=== PATIENT | male | born 1985 | race Caucasian/White ===

== ENCOUNTER 2017-12-13 10:39 | Emergency (ER) | payer SELFPAY ==
--- NOTE | 2017-12-13 11:26 | EDPHYS ---
Physician Documentation [facility] Name: Denis James III Age: 32 yrs Sex: Male : 1985 Arrival Date: 12/13/2017 Time: 10:43 Bed 11 Private MD: None, None ED Physician Cash Edwards HPI: 12/13 11:07 This 32 yrs old Male presents to ER via Ambulatory with complaints of Ear dimas Pain. 11:07 The patient presents with pain. The complaints affect the left ear. Onset: The dimas symptoms/episode began/occurred 3 day(s) ago. Modifying factors: The symptoms are alleviated by nothing, the symptoms are aggravated by nothing. Associated signs and symptoms: The patient has no apparent associated signs or symptoms. Severity of symptoms: At their worst the symptoms were mild in the emergency department the symptoms are unchanged. Historical: - Allergies: 10:47 No Known Allergies; aj1 - Home Meds: 10:47 None [Active]; aj1 - PMHx: 10:47 None; aj1 - PSHx: 10:47 None; aj1 - Immunization history:: Flu vaccine is not up to date. - Social history:: Smoking status: Patient uses tobacco products, smokes one pack cigarettes per day. - Ebola Screening: : Patient denies travel to an Ebola-affected area in the 21 days before illness onset. ROS: 11:20 Constitutional: Negative for fever, chills, and weight loss, Eyes: Negative for injury, dimas pain, redness, and discharge, Neck: Negative for injury, pain, and swelling, Cardiovascular: Negative for chest pain, palpitations, and edema, Respiratory: Negative for shortness of breath, cough, wheezing, and pleuritic chest pain, Abdomen/GI: Negative for abdominal pain, nausea, vomiting, diarrhea, and constipation, Back: Negative for injury and pain, : Negative for injury, bleeding, discharge, and swelling, MS/Extremity: Negative for injury and deformity, Skin: Negative for injury, rash, and discoloration, Neuro: Negative for headache, weakness, numbness, tingling, and seizure, Psych: Negative for depression, anxiety, suicide ideation, homicidal ideation, and hallucinations, Allergy/Immunology: Negative for hives, rash, and allergies, Endocrine: Negative for neck swelling, polydipsia, polyuria, polyphagia, and marked weight changes, Hematologic/Lymphatic: Negative for swollen nodes, abnormal bleeding, and unusual bruising. 11:20 ENT: Positive for ear pain. Exam: 11:20 Constitutional: This is a well developed, well nourished patient who is awake, alert, dimas and in no acute distress. Head/Face: Normocephalic, atraumatic. Eyes: Pupils equal round and reactive to light, extra-ocular motions intact. Lids and lashes normal. Conjunctiva and sclera are non-icteric and not injected. Cornea within normal limits. Periorbital areas with no swelling, redness, or edema. Neck: Trachea midline, no thyromegaly or masses palpated, and no cervical lymphadenopathy. Supple, full range of motion without nuchal rigidity, or vertebral point tenderness. No Meningismus. Chest/axilla: Normal chest wall appearance and motion. Nontender with no deformity. No lesions are appreciated. Cardiovascular: Regular rate and rhythm with a normal S1 and S2. No gallops, murmurs, or rubs. Normal PMI, no JVD. No pulse deficits. Respiratory: Lungs have equal breath sounds bilaterally, clear to auscultation and percussion. No rales, rhonchi or wheezes noted. No increased work of breathing, no retractions or nasal flaring. Abdomen/GI: Soft, non-tender, with normal bowel sounds. No distension or tympany. No guarding or rebound. No evidence of tenderness throughout. Back: No spinal tenderness. No costovertebral tenderness. Full range of motion. Male : Normal genitalia with no discharge or lesions. Skin: Warm, dry with normal turgor. Normal color with no rashes, no lesions, and no evidence of cellulitis. MS/ Extremity: Pulses equal, no cyanosis. Neurovascular intact. Full, normal range of motion. Neuro: Awake and alert, GCS 15, oriented to person, place, time, and situation. Cranial nerves II-XII grossly intact. Motor strength 5/5 in all extremities. Sensory grossly intact. Cerebellar exam normal. Normal gait. Psych: Awake, alert, with orientation to person, place and time. Behavior, mood, and affect are within normal limits. 11:20 ENT: External ear(s): no acute changes, Ear canal(s): are normal, no acute changes, TM's: are normal, no acute changes, Nose: is normal, Examination of the other nostril shows no obvious abnormality, Mouth: is normal, Posterior pharynx: is normal. Vital Signs: 10:47 BP 121 / 81; Pulse 73; Resp 18; Temp 98.1; Pulse Ox 99% on R/A; Weight 77.11 kg (R); aj1 Height 6 ft. 0 in. (182.88 cm) (R); Pain 8/10; 10:47 Body Mass Index 23.06 (77.11 kg, 182.88 cm) aj1 MDM: 10:52 Patient medically screened. [facility] 11:23 Data reviewed: vital signs, nurses notes. [facility] Administered Medications: No medications were administered Disposition: 12/13/17 11:25 Discharged to Home. Impression: Other seasonal allergic rhinitis. - Condition is Stable. - Discharge Instructions: Allergies, Adult, Nasal Allergies, Steps to Quit Smoking, Smoking Hazards, Steps to Quit Smoking, [id number]. - Prescriptions for Abbie- D 12 Hour 60-120 mg Oral Tablet Sustained Release 12 hr - take 1 tablet by ORAL route every 12 hours As needed; 20 tablet. Medrol (Samuel) 4 mg Oral Tablets, Dose Pack - take 1 tablet by ORAL route as directed - follow package instructions; 1 packet. - Medication Reconciliation Form, Thank You Letter, Antibiotic Education, Prescription Opioid Use form. - Follow up: Private Physician; When: 2 - 3 days; Reason: Recheck today's complaints, Continuance of care, Re-evaluation by your physician. Follow up: Salvador Ayers MD; When: 2 - 3 days; Reason: Recheck today's complaints, Re-evaluation by your physician. - Problem is new. - Symptoms have improved. Signatures: Guillermina Sanon RN RN aj1 Cash Edwards MD MD cha Williams, Irene RN RN iw Corrections: (The following items were deleted from the chart) 11:34 11:25 12/13/2017 11:25 Discharged to Home. Impression: Other seasonal allergic iw rhinitis. Condition is Stable. Forms are Medication Reconciliation Form, Thank You Letter, Antibiotic Education, Prescription Opioid Use. Follow up: Private Physician; When: 2 - 3 days; Reason: Recheck today's complaints, Continuance of care, Re-evaluation by your physician. Follow up: Salvador Ayers; When: 2 - 3 days; Reason: Recheck today's complaints, Re-evaluation by your physician. Problem is new. Symptoms have improved. dimas
--- NOTE | 2017-12-13 11:26 | ER ---
Nurse's Notes [facility] Name: Denis James III Age: 32 yrs Sex: Male : 1985 Arrival Date: 12/13/2017 Time: 10:43 Bed 11 Private MD: None, None Diagnosis: Other seasonal allergic rhinitis Presentation: 12/13 10:45 Presenting complaint: Patient states: "My ear has been bothering me for about a week. I aj1 tried cleaning it with peroxide, but its still bothering me and today it's worse" Denies fever. Transition of care: patient was not received from another setting of care. Onset of symptoms was December 07, 2017. Risk Assessment: Do you want to hurt yourself or someone else? Patient reports no desire to harm self or others. Initial Sepsis Screen: Does the patient meet any 2 criteria? No. Patient's initial sepsis screen is negative. Does the patient have a suspected source of infection? No. Patient's initial sepsis screen is negative. Care prior to arrival: None. 10:45 Method Of Arrival: Ambulatory aj1 10:45 Acuity: ZOEY 5 aj1 Triage Assessment: 10:47 General: Appears in no apparent distress. uncomfortable, Behavior is calm, cooperative, aj1 appropriate for age. Pain: Complains of pain in left ear Pain radiates to left jaw Pain currently is 7 out of 10 on a pain scale. Quality of pain is described as throbbing, Pain began one week ago Is continuous. EENT: Reports ear pain. Neuro: Level of Consciousness is awake, alert, obeys commands. Cardiovascular: Patient's skin is warm and dry. Respiratory: Airway is patent Respiratory effort is even, unlabored, Respiratory pattern is regular, symmetrical. Historical: - Allergies: 10:47 No Known Allergies; aj1 - Home Meds: 10:47 None [Active]; aj1 - PMHx: 10:47 None; aj1 - PSHx: 10:47 None; aj1 - Immunization history:: Flu vaccine is not up to date. - Social history:: Smoking status: Patient uses tobacco products, smokes one pack cigarettes per day. - Ebola Screening: : Patient denies travel to an Ebola-affected area in the 21 days before illness onset. Screenin:49 Abuse screen: Denies threats or abuse. Denies injuries from another. Nutritional aj1 screening: No deficits noted. Tuberculosis screening: No symptoms or risk factors identified. Assessment: 10:49 General: Appears in no apparent distress. uncomfortable, Behavior is calm, cooperative, aj1 appropriate for age. Pain: Complains of pain in left ear Pain radiates to left jaw Pain currently is 8 out of 10 on a pain scale. Quality of pain is described as throbbing, Pain began one week ago Is continuous. Neuro: Level of Consciousness is awake, alert, obeys commands, Oriented to person, place, time, situation. Cardiovascular: Patient's skin is warm and dry. Respiratory: Airway is patent Respiratory effort is even, unlabored, Respiratory pattern is regular, symmetrical. GI: No signs and/or symptoms were reported involving the gastrointestinal system. : No signs and/or symptoms were reported regarding the genitourinary system. EENT: Reports ear pain. Derm: No signs and/or symptoms reported regarding the dermatologic system. Skin is pink, warm \\T\\ dry. normal. Musculoskeletal: No signs and/or symptoms reported regarding the musculoskeletal system. Circulation, motion, and sensation intact. Vital Signs: 10:47 BP 121 / 81; Pulse 73; Resp 18; Temp 98.1; Pulse Ox 99% on R/A; Weight 77.11 kg (R); aj1 Height 6 ft. 0 in. (182.88 cm) (R); Pain 8/10; 10:47 Body Mass Index 23.06 (77.11 kg, 182.88 cm) aj1 ED Course: 10:43 Patient arrived in ED. mr 10:43 None, None is Private Physician. mr 10:47 Triage completed. aj1 10:47 Arm band placed on Patient placed in an exam room. aj1 10:49 Patient has correct armband on for positive identification. Bed in low position. Call aj1 light in reach. Side rails up X 1. 10:49 No provider procedures requiring assistance completed. aj1 10:52 Cash Edwards MD is Attending Physician. [facility] 10:52 Guillermina Sanon RN is Primary Nurse. aj1 11:23 Salvador Ayers MD is Referral Physician. dimas Administered Medications: No medications were administered Outcome: 11:25 Discharge ordered by . [facility] 11:34 Patient left the ED. iw Signatures: Guillermina Sanon RN RN aj1 Cash Edwards MD MD cha Rivera, Maria mr Lyudmila Chavira, KIRSTIE RN iw
== END 2017-12-13 11:34 | disposition home or self-care (01) ==
LOC: ER 10:39
DX: J30.2 Other seasonal allergic rhinitis (principal); F17.210 Nicotine dependence, cigarettes, uncomplicated
CPT/HCPCS: 99281

== ENCOUNTER 2019-06-04 08:57 | Emergency (ER) | payer SELFPAY ==
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
[2019-06-04 10:45] VITALS: BP 127/89; TEMP 97.6; O2SAT 100
== END 2019-06-04 09:38 | disposition home or self-care (01) ==
LOC: ER 08:57
DX: H65.02 Acute serous otitis media, left ear (principal)
CPT/HCPCS: 99283

== ENCOUNTER 2020-05-21 07:42 | Emergency (ER) | payer SELFPAY ==
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
[2020-05-21 08:55] VITALS: BP 116/85; TEMP 98.5; O2SAT 100
== END 2020-05-21 08:50 | disposition home or self-care (01) ==
LOC: ER 07:42
DX: H60.312 Diffuse otitis externa, left ear (principal)
CPT/HCPCS: 99282

== ENCOUNTER 2024-07-08 16:40 | Emergency (ER) | payer OTHER ==
--- NOTE | 2024-07-08 17:19 | ER ---
Nurse's Notes [facility] Name: Denis James III Age: 39 yrs Sex: Male : 1985 Arrival Date: 07/08/2024 Time: 16:40 Bed 9 Private MD: Diagnosis: Cellulitis, unspecified Presentation: 07/08 16:49 Chief complaint: Patient states: red, raised, warm area to right lower back. Has had a me1 knot there for sometime but started developing a head yesterday. Coronavirus screen: Vaccine status: Patient reports being unvaccinated. Ebola Screen: No symptoms or risks identified at this time. Initial Sepsis Screen: Does the patient meet any 2 criteria? No. Patient's initial sepsis screen is negative. Does the patient have a suspected source of infection? No. Patient's initial sepsis screen is negative. Risk Assessment: Do you want to hurt yourself or someone else? Patient reports no desire to harm self or others. Onset of symptoms is unknown. 16:49 Method Of Arrival: Ambulatory me1 16:49 Acuity: OZEY 4 me1 Historical: - Allergies: 16:51 No Known Allergies; me1 - Home Meds: 16:51 None [Active]; me1 - PMHx: 16:51 None; me1 - PSHx: 16:51 None; me1 - Immunization history:: Adult Immunizations up to date. - Infectious Disease History:: Denies. - Social history:: Smoking status: Patient reports the use of cigarette tobacco products, smokes one pack cigarettes per day. Screenin:52 [facility] ED Fall Risk Assessment (Adult) History of falling in the last 3 months, me1 including since admission No falls in past 3 months (0 pts) Confusion or Disorientation No (0 pts) Intoxicated or Sedated No (0 pts) Impaired Gait No (0 pts) Mobility Assist Device Used No (0 pt) Altered Elimination No (0 pt) Score/Fall Risk Level 0 - 2 = Low Risk Maintained a safe environment, Provided non-skid footwear, Hourly rounding (assess needs \T\ fall precautionary measures) done. Abuse screen: Denies threats or abuse. Nutritional screening: No deficits noted. Tuberculosis screening: No symptoms or risk factors identified. Assessment: 16:52 General: Appears in no apparent distress. Behavior is calm, cooperative, appropriate me1 for age, Reports red, raised, warm area to right lower back. Has had a knot there for sometime but started developing a head yesterday. Pain: Complains of pain in right low back Pain does not radiate. Pain currently is 2 out of 10 on a pain scale. Quality of pain is described as tender, Pain began gradually, Is continuous. Neuro: Level of Consciousness is awake, alert, obeys commands, Oriented to person, place, time, situation, Appropriate for age. Cardiovascular: Patient's skin is warm and dry. Respiratory: Airway is patent Respiratory effort is even, unlabored, Respiratory pattern is regular, symmetrical. GI: No signs and/or symptoms were reported involving the gastrointestinal system. : No signs and/or symptoms were reported regarding the genitourinary system. EENT: No signs and/or symptoms were reported regarding the EENT system. Derm: Wound noted right low back Wound is red, warm, swollen. Musculoskeletal: No signs and/or symptoms reported regarding the musculoskeletal system. Vital Signs: 16:49 BP 139 / 84; Pulse 70; Resp 16; Temp 98.6; Pulse Ox 100% ; Weight 90.72 kg; Height 6 me1 ft. 0 in. ; Pain 2/10; 17:26 BP 136 / 79; Pulse 66; Resp 16; Temp 98.1; Pulse Ox 100% ; me1 16:49 Body Mass Index 27.12 (90.72 kg, 182.88 cm) me1 16:49 Pain Scale: Adult me1 ED Course: 16:45 Patient arrived in ED. im 16:46 Laron Willingham MD is Attending Physician. sp3 16:51 Triage completed. me1 16:51 Arm band placed on Patient placed in an exam room. me1 16:52 Patient has correct armband on for positive identification. Bed in low position. Call me1 light in reach. Side rails up X 1. Provided Education on: POC, Verbalized understanding.. 16:52 No provider procedures requiring assistance completed. Patient did not have IV access me1 during this emergency room visit. 17:15 Megan Bell, KIRSTIE is Primary Nurse. me1 17:18 Sinan Villalpando MD is Referral Physician. sp3 Administered Medications: No medications were administered Medication: 16:52 VIS not applicable for this client. me1 Outcome: 17:18 Discharge ordered by . spRudolph 17:26 Discharged to home ambulatory, me1 17:26 Condition: stable 17:26 Discharge instructions given to patient, Instructed on discharge instructions, follow up and referral plans. medication usage, Demonstrated understanding of instructions, follow-up care, medications, Prescriptions given X 2, 17:28 Patient left the ED. me1 Signatures: Laron Willingham MD MD sp3 Harika Lew Michelle, RN RN me1 Corrections: (The following items were deleted from the chart) 17:22 16:49 Chief complaint: Patient states: red, raised, warm area to right lower back. Has me1 had a knot there for sometime but started developing a head yesterday me1
--- NOTE | 2024-07-08 17:19 | EDPHYS ---
Physician Documentation [facility] Name: Denis James III Age: 39 yrs Sex: Male : 1985 Arrival Date: 07/08/2024 Time: 16:40 Bed 9 Private MD: ED Physician Laron Willingham HPI: 07/08 17:15 This 39 yrs old Male presents to ER via Ambulatory with complaints of bump on low back. sp3 17:15 39-year-old male with no past medical history presents with right flank redness and sp3 "bump". Patient states it "developed ahead and popped yesterday a little bit" but he has been dealing with this off and on for the last several months. He denies any fever, lymph node swelling, other areas of similar symptoms, or any other aspect of review of systems at this time.. Historical: - Allergies: 16:51 No Known Allergies; me1 - Home Meds: 16:51 None [Active]; me1 - PMHx: 16:51 None; me1 - PSHx: 16:51 None; me1 - Immunization history:: Adult Immunizations up to date. - Infectious Disease History:: Denies. - Social history:: Smoking status: Patient reports the use of cigarette tobacco products, smokes one pack cigarettes per day. ROS: 17:16 Constitutional: Negative for fever, chills, and weight loss, Eyes: Negative for injury, sp3 pain, redness, and discharge, ENT: Negative for injury, pain, and discharge, Neck: Negative for injury, pain, and swelling, Cardiovascular: Negative for chest pain, palpitations, and edema, Respiratory: Negative for shortness of breath, cough, wheezing, and pleuritic chest pain, Abdomen/GI: Negative for abdominal pain, nausea, vomiting, diarrhea, and constipation, Back: Negative for injury and pain, MS/Extremity: Negative for injury and deformity, Neuro: Negative for headache, weakness, numbness, tingling, and seizure, Psych: Negative for depression, anxiety, suicide ideation, homicidal ideation, and hallucinations, Allergy/Immunology: Negative for hives, rash, and allergies, Endocrine: Negative for neck swelling, polydipsia, polyuria, polyphagia, and marked weight changes, Hematologic/Lymphatic: Negative for swollen nodes, abnormal bleeding, and unusual bruising, 17:16 All other systems are negative, Exam: 17:16 Constitutional: This is a well developed, well nourished patient who is awake, alert, sp3 and in no acute distress. Head/Face: Normocephalic, atraumatic. Eyes: Pupils equal round and reactive to light, extra-ocular motions intact. Lids and lashes normal. Conjunctiva and sclera are non-icteric and not injected. Cornea within normal limits. Periorbital areas with no swelling, redness, or edema. Neck: Trachea midline, no thyromegaly or masses palpated, and no cervical lymphadenopathy. Supple, full range of motion without nuchal rigidity, or vertebral point tenderness. No Meningismus. Chest/axilla: Normal chest wall appearance and motion. Nontender with no deformity. No lesions are appreciated. Cardiovascular: Regular rate and rhythm with a normal S1 and S2. No gallops, murmurs, or rubs. Normal PMI, no JVD. No pulse deficits. Respiratory: Lungs have equal breath sounds bilaterally, clear to auscultation and percussion. No rales, rhonchi or wheezes noted. No increased work of breathing, no retractions or nasal flaring. Abdomen/GI: Soft, non-tender, with normal bowel sounds. No distension or tympany. No guarding or rebound. No evidence of tenderness throughout. Back: No spinal tenderness. No costovertebral tenderness. Full range of motion. MS/ Extremity: Pulses equal, no cyanosis. Neurovascular intact. Full, normal range of motion. Neuro: Awake and alert, GCS 15, oriented to person, place, time, and situation. Cranial nerves II-XII grossly intact. Motor strength 5/5 in all extremities. Sensory grossly intact. Cerebellar exam normal. Normal gait. Psych: Awake, alert, with orientation to person, place and time. Behavior, mood, and affect are within normal limits. 17:16 Skin: abscess, that is small, with surrounding cellulitis, cellulitis, that is mild, Vital Signs: 16:49 BP 139 / 84; Pulse 70; Resp 16; Temp 98.6; Pulse Ox 100% ; Weight 90.72 kg; Height 6 me1 ft. 0 in. ; Pain 2/10; 17:26 BP 136 / 79; Pulse 66; Resp 16; Temp 98.1; Pulse Ox 100% ; me1 16:49 Body Mass Index 27.12 (90.72 kg, 182.88 cm) me1 16:49 Pain Scale: Adult me1 MDM: 16:46 Medical Screening Exam initiated sp3 17:17 Data reviewed: vital signs, nurses notes. ED course: Patient with normal vital signs. sp3 Area of cellulitis and nonfluctuant abscess noted. Tissue is also indurated. Will treat with p.o. antibiotics and follow-up with surgery as needed.. Administered Medications: No medications were administered Disposition Summary: 07/08/24 17:18 Discharge Ordered Notes: Location: Home sp3 Condition: Stable sp3 Diagnosis - Cellulitis, unspecified sp3 Followup: sp3 - With: Private Physician - When: Upon discharge from the Emergency Department - Reason: Continuance of care Followup: sp3 - With: Sinan Villalpando MD - When: Upon discharge from the Emergency Department - Reason: Continuance of care Discharge Instructions: - Discharge Summary Sheet sp3 - Cellulitis, Adult sp3 Forms: - Medication Reconciliation Form sp3 - Antibiotic Education sp3 - Prescription Opioid Use sp3 - Patient Portal Instructions sp3 - Leadership Thank You Letter sp3 Prescriptions: - Clindamycin HCl 300 mg Oral Capsule - take 1 capsule ORAL route every 6 hours for 10 days; 40 capsule; Refills: 0, sp3 Product Selection Permitted - Bactrim DS 800-160 mg Oral Tablet - take 1 tablet ORAL route every 12 hours for 7 days; 14 tablet; Refills: 0, sp3 Product Selection Permitted Signatures: Laron Willingham MD MD sp3 Megan Bell RN RN me1
[2024-07-08 17:32] VITALS: O2SAT 100
[2024-07-08 17:34] VITALS: BP 136/79; TEMP 98.1
== END 2024-07-08 17:28 | disposition home or self-care (01) ==
LOC: ER 16:40
DX: L03.312 Cellulitis of back [any part except buttock and flank] (principal); F17.210 Nicotine dependence, cigarettes, uncomplicated
CPT/HCPCS: 99283